=== PATIENT | female | born 1995 | race African-American/Black ===

== ENCOUNTER 2021-08-24 11:40 | Emergency (ER) | payer SELFPAY ==
[2021-08-24 15:09] LABS: CARBON DIOXIDE,CO2 23.2 mmol/L (21.0-32.0); POTASSIUM,K 3.3 mmol/L (3.5-5.1)
== END 2021-08-24 16:19 | disposition home or self-care (01) ==
LOC: MW.ED 11:40
DX: O99.891 Other specified diseases and conditions complicating pregnancy (principal); R10.9 Unspecified abdominal pain; Z3A.01 Less than 8 weeks gestation of pregnancy
CPT/HCPCS: 36415; 76801; 76801-26; 80053; 81003; 81025; 84702; 85025; 86900; 86901; 99284-25

== ENCOUNTER 2021-09-03 08:05 | Emergency (ER) | payer SELFPAY ==
[2021-09-03] MEDS ORDERED: Ondansetron 4 MG Tab.DIS PO ONE (08:30)
== END 2021-09-03 09:34 | disposition home or self-care (01) ==
LOC: MW.ED 08:05
DX: O21.0 Mild hyperemesis gravidarum (principal); Z3A.01 Less than 8 weeks gestation of pregnancy
CPT/HCPCS: 99283; A9270

== ENCOUNTER 2022-03-19 20:10 | Emergency (ER) | payer OTHER ==
[2022-03-19] MEDS ORDERED: Lidocaine 5% 700 MG Patch TRDERM ONE (21:16)
[2022-03-19] MEDS ORDERED: Ketorolac 30 MG/ML SDV IM STA (21:16)
[2022-03-19] MEDS ORDERED: Cyclobenzaprine 10 MG Tab PO ONE (21:16)
== END 2022-03-19 23:36 | disposition home or self-care (01) ==
LOC: MW.ED 20:10
DX: S39.012A Strain of muscle, fascia and tendon of lower back, initial encounter (principal)
CPT/HCPCS: 81003; 81025; 96372; 99283; A9270; J1885

== ENCOUNTER 2024-03-07 15:12 | Emergency (ER) | payer OTHER ==
[2024-03-07] MEDS: Sodium Chloride 0.9% 1,000 ML IV ONE (17:10)
[2024-03-07] MEDS: Ondansetron 4 MG/2 ML SDV IVPUSH ONE (17:11)
[2024-03-07 17:21] LABS: BILIRUBIN,URINE NEGATIVE (NEGATIVE); COLOR,URINE YELLOW; GLUCOSE,URINE NEGATIVE (NEGATIVE); KETONES,URINE >=80 mg/dL (NEGATIVE); LEUKOCYTE ESTERASE,URINE NEGATIVE (NEGATIVE); NITRITE,URINE NEGATIVE (NEGATIVE); OCCULT BLOOD,URINE NEGATIVE (NEGATIVE); PH,URINE 6.5 (5.0-8.0); PROTEIN,URINE 100 mg/dL (NEGATIVE)
[2024-03-07 17:21] LABS: BASOPHILS ABSOLUTE AUTO 0.03 K/uL (0.00-0.20); BASOPHILS PERCENT AUTO 0.3 % (0.0-1.0); EOSINOPHILS ABSOLUTE AUTO 0.01 K/uL (0.00-0.45); EOSINOPHILS PERCENT AUTO 0.1 % (0.0-6.0); HEMATOCRIT 41.1 % (37.0-47.0); IMMATURE GRAN ABSOLUTE AUTO 0.03 K/uL (0.00-0.05); IMMATURE GRAN PERCENT AUTO 0.3 % (0.0-0.4); LYMPHOCYTES ABSOLUTE AUTO 1.53 K/uL (1.00-4.80); LYMPHOCYTES PERCENT AUTO 17.2 % (24.0-44.0); MEAN CORPUSCULAR HEMOGLOBIN 28.7 pg (28.0-32.0); MEAN CORPUSCULAR HGB CONC 34.1 g/dL (32.0-36.0); MEAN CORPUSCULAR VOLUME 84.4 fL (83.0-99.0); MONOCYTES ABSOLUTE AUTO 0.39 K/uL (0.00-0.80); MONOCYTES PERCENT AUTO 4.4 % (0.0-8.0); NEUTROPHILS ABSOLUTE AUTO 6.88 K/uL (1.80-7.70); NEUTROPHILS PERCENT AUTO 77.7 % (41.0-71.0); PLATELET COUNT,PLT 234 K/uL (150-400); RED BLOOD CELL COUNT 4.87 M/uL (4.10-5.30); WHITE BLOOD CELL COUNT,WBC 8.87 K/uL (3.9-11.3)
[2024-03-07 17:38] LABS: APPEARANCE,URINE HAZY
[2024-03-07 17:39] LABS: BACTERIA,URINE 1+ (NEGATIVE); EPITHELIAL CELLS,URINE MODERATE (NONE-FEW); MUCUS,URINE MODERATE (NONE-MOD); RBC,URINE 0-1 (0-2/HPF)
[2024-03-07 18:14] LABS: A/G RATIO 0.9 (0.9-1.6); ALBUMIN 4.2 g/dL (3.4-5.0); BILIRUBIN TOTAL 0.5 mg/dL (0.2-1.0); CALCIUM 9.8 mg/dL (8.5-10.1); CARBON DIOXIDE,CO2 25.9 mmol/L (21.0-32.0); CREATININE 0.8 mg/dL (0.6-1.0); EST CRCL DRUG DOSING (CG) 99.76 mL/min; POTASSIUM,K 3.9 mmol/L (3.5-5.1)
== END 2024-03-07 18:32 | disposition home or self-care (01) ==
LOC: MW.ED 15:12
DX: O21.9 Vomiting of pregnancy, unspecified (principal); Z3A.01 Less than 8 weeks gestation of pregnancy; Z75.8 Other problems related to medical facilities and other health care; Z79.899 Other long term (current) drug therapy
CPT/HCPCS: 36415; 80053; 81001; 84702; 85025; 86900; 86901; 87428; 96361; 96374; 99284; J2405; J7030; 99283

== ENCOUNTER 2024-03-19 07:04 | Emergency (ER) | payer OTHER ==
[2024-03-19] MEDS ORDERED: Sodium Chloride 0.9% 10 ML Syringe FLUSH PRN (07:19)
[2024-03-19] MEDS: Acetaminophen 500 MG Tab PO ONE (07:20)
[2024-03-19] MEDS: Lactated Ringers 1,000 ML IV ONE (07:33)
[2024-03-19] MEDS: Ondansetron 4 MG/2 ML SDV IVPUSH ONE (07:34)
[2024-03-19] MEDS: diphenhydrAMINE 50 MG/ML SDV IVPUSH ONE (07:35)
[2024-03-19 07:42] LABS: BASOPHILS ABSOLUTE AUTO 0.02 K/uL (0.00-0.20); BASOPHILS PERCENT AUTO 0.3 % (0.0-1.0); EOSINOPHILS ABSOLUTE AUTO 0.04 K/uL (0.00-0.45); EOSINOPHILS PERCENT AUTO 0.6 % (0.0-6.0); HEMATOCRIT 37.4 % (37.0-47.0); HEMOGLOBIN 12.7 g/dL (12.0-16.0); IMMATURE GRAN ABSOLUTE AUTO 0.01 K/uL (0.00-0.05); IMMATURE GRAN PERCENT AUTO 0.2 % (0.0-0.4); LYMPHOCYTES PERCENT AUTO 25.6 % (24.0-44.0); MEAN CORPUSCULAR HEMOGLOBIN 28.4 pg (28.0-32.0); MEAN CORPUSCULAR VOLUME 83.7 fL (83.0-99.0); MEAN PLATELET VOLUME 11.3 fL (9.4-12.3); MONOCYTES ABSOLUTE AUTO 0.37 K/uL (0.00-0.80); MONOCYTES PERCENT AUTO 5.9 % (0.0-8.0); NEUTROPHILS PERCENT AUTO 67.4 % (41.0-71.0); PLATELET COUNT,PLT 210 K/uL (150-400); RED BLOOD CELL COUNT 4.47 M/uL (4.10-5.30); WHITE BLOOD CELL COUNT,WBC 6.24 K/uL (3.9-11.3)
[2024-03-19 08:13] LABS: APPEARANCE,URINE CLEAR; BILIRUBIN,URINE NEGATIVE (NEGATIVE); COLOR,URINE YELLOW; GLUCOSE,URINE NEGATIVE (NEGATIVE); KETONES,URINE NEGATIVE (NEGATIVE); LEUKOCYTE ESTERASE,URINE TRACE (NEGATIVE); NITRITE,URINE NEGATIVE (NEGATIVE); OCCULT BLOOD,URINE NEGATIVE (NEGATIVE); PROTEIN,URINE NEGATIVE (NEGATIVE); UROBILINOGEN,URINE 0.2 EU/dL (<2.0)
[2024-03-19 08:17] LABS: A/G RATIO 1.1 (0.9-1.6); ALANINE AMINOTRANSFERASE,ALT 49 IU/L (14-63); ALBUMIN 3.9 g/dL (3.4-5.0); ALKALINE PHOSPHATASE 56 U/L (46-116); ASPARTATE AMNIOTRANSFERASE,AST 14 IU/L (15-37); BILIRUBIN TOTAL 0.5 mg/dL (0.2-1.0); BLOOD UREA NITROGEN,BUN 6 mg/dL (7.0-18.0); CALCIUM 9.1 mg/dL (8.5-10.1); CARBON DIOXIDE,CO2 24.6 mmol/L (21.0-32.0); CHLORIDE,CL 102 mmol/L (98-107); CREATININE 0.9 mg/dL (0.6-1.0); GLUCOSE RANDOM 98 mg/dL (74-106); MAGNESIUM 2.1 mg/dL (1.8-2.4); PROTEIN TOTAL,TP 7.6 g/dL (6.4-8.2); SODIUM,NA 138 mmol/L (136-145)
[2024-03-19 08:18] LABS: ESTIMATED GFR 90 mL/min (>60)
[2024-03-19 08:25] LABS: C-REACTIVE PROTEIN 0.7 mg/dL (<0.3)
[2024-03-19 08:28] LABS: BACTERIA,URINE FEW (NEGATIVE); EPITHELIAL CELLS,URINE FEW (NONE-FEW); RBC,URINE 0-1 (0-2/HPF); WBC,URINE 0-2 (0-5/HPF)
== END 2024-03-19 09:41 | disposition home or self-care (01) ==
LOC: MW.ED 07:04
DX: O21.9 Vomiting of pregnancy, unspecified (principal); O99.891 Other specified diseases and conditions complicating pregnancy; R51.9 Headache, unspecified; R82.71 Bacteriuria; O23.11 Infections of bladder in pregnancy, first trimester; Z79.899 Other long term (current) drug therapy
CPT/HCPCS: 36415; 80053; 81001; 83735; 84702; 85025; 85652; 86140; 87428; 96361; 96374; 96375; 99284; A9270; J1200; J2405; J7120; 99283

== ENCOUNTER 2024-03-22 10:44 | Emergency (ER) | payer OTHER ==
[2024-03-22] MEDS: Sodium Chloride 0.9% 1,000 ML IV STA (11:07)
[2024-03-22] MEDS: Promethazine 25 MG/ML SDV IM STA (11:08)
[2024-03-22 11:11] LABS: BASOPHILS ABSOLUTE AUTO 0.02 K/uL (0.00-0.20); BASOPHILS PERCENT AUTO 0.2 % (0.0-1.0); HEMATOCRIT 39.6 % (37.0-47.0); HEMOGLOBIN 13.4 g/dL (12.0-16.0); IMMATURE GRAN ABSOLUTE AUTO 0.02 K/uL (0.00-0.05); IMMATURE GRAN PERCENT AUTO 0.2 % (0.0-0.4); LYMPHOCYTES ABSOLUTE AUTO 1.11 K/uL (1.00-4.80); LYMPHOCYTES PERCENT AUTO 12.9 % (24.0-44.0); MEAN CORPUSCULAR HEMOGLOBIN 28.3 pg (28.0-32.0); MEAN CORPUSCULAR HGB CONC 33.8 g/dL (32.0-36.0); MEAN CORPUSCULAR VOLUME 83.5 fL (83.0-99.0); MEAN PLATELET VOLUME 11.2 fL (9.4-12.3); MONOCYTES ABSOLUTE AUTO 0.33 K/uL (0.00-0.80); MONOCYTES PERCENT AUTO 3.8 % (0.0-8.0); NEUTROPHILS PERCENT AUTO 82.9 % (41.0-71.0); PLATELET COUNT,PLT 220 K/uL (150-400); RED BLOOD CELL COUNT 4.74 M/uL (4.10-5.30); WHITE BLOOD CELL COUNT,WBC 8.58 K/uL (3.9-11.3)
[2024-03-22 11:30] LABS: APPEARANCE,URINE CLEAR; GLUCOSE,URINE NEGATIVE (NEGATIVE); KETONES,URINE 15 mg/dL (NEGATIVE); LEUKOCYTE ESTERASE,URINE NEGATIVE (NEGATIVE); NITRITE,URINE POSITIVE (NEGATIVE); OCCULT BLOOD,URINE NEGATIVE (NEGATIVE); PH,URINE 6.5 (5.0-8.0); PROTEIN,URINE 100 mg/dL (NEGATIVE)
[2024-03-22 11:35] LABS: BILIRUBIN,URINE SMALL (NEGATIVE)
[2024-03-22 11:36] LABS: COLOR,URINE AMBER
[2024-03-22 11:37] LABS: BACTERIA,URINE FEW (NEGATIVE); EPITHELIAL CELLS,URINE FEW (NONE-FEW); MUCUS,URINE LIGHT (NONE-MOD); RBC,URINE 0-1 (0-2/HPF); WBC,URINE 0-5 (0-5/HPF)
[2024-03-22 11:45] LABS: A/G RATIO 0.9 (0.9-1.6); ALBUMIN 4.1 g/dL (3.4-5.0); BILIRUBIN TOTAL 0.7 mg/dL (0.2-1.0); CALCIUM 9.5 mg/dL (8.5-10.1); CARBON DIOXIDE,CO2 25.7 mmol/L (21.0-32.0); CREATININE 0.8 mg/dL (0.6-1.0); EST CRCL DRUG DOSING (CG) 99.76 mL/min; POTASSIUM,K 4.2 mmol/L (3.5-5.1); PROTEIN TOTAL,TP 8.7 g/dL (6.4-8.2)
[2024-03-22] MEDS: cefTRIAXone 1 GM in Sodium Chloride 0.9% 50 ML IV STA (12:13)
[2024-03-22] MEDS: Dextrose 5%-0.9% NaCl 1,000 ML IV STA (12:13)
== END 2024-03-22 13:25 | disposition home or self-care (01) ==
LOC: MW.ED 10:44
DX: O21.9 Vomiting of pregnancy, unspecified (principal); O23.91 Unspecified genitourinary tract infection in pregnancy, first trimester; R82.71 Bacteriuria; Z75.8 Other problems related to medical facilities and other health care; Z3A.09 9 weeks gestation of pregnancy
CPT/HCPCS: 36415; 80053; 81001; 83690; 84702; 85025; 87086; 96361; 96365; 96372; 99284; J0696; J2550; J3490; J7030; J7042

== ENCOUNTER 2024-11-03 21:55 | Inpatient (IN) | payer OTHER ==
[2024-11-03] MEDS ORDERED: Sodium Chloride 0.9% 2.5 ML Syringe FLUSH PRN (22:10)
[2024-11-03] MEDS ORDERED: Sodium Chloride 0.9% 10 ML Syringe FLUSH PRN (22:10)
[2024-11-03] MEDS ORDERED: Water For Irrigation,Sterile 1,000 ML Container IRR PRN (22:10)
[2024-11-03] MEDS ORDERED: Carboprost Tromethamine 250 MCG/1 mL Vial IM PRN (22:10)
[2024-11-03] MEDS ORDERED: Butorphanol 1 MG/ML SDV IVPUSH PRN (22:10)
[2024-11-03] MEDS: Lactated Ringers 1,000 ML IV SCH (22:42)
[2024-11-03 22:59] LABS: MEAN PLATELET VOLUME 11.5 fL (9.4-12.3); NRBC ABSOLUTE 0.00 K/uL (0.00-0.02); NRBC PERCENT 0.0 /100WBC (0.0-0.2); PLATELET COUNT,PLT 179 K/uL (150-400); RED BLOOD CELL COUNT 3.81 M/uL (4.10-5.30); WHITE BLOOD CELL COUNT,WBC 12.39 K/uL (3.9-11.3)
[2024-11-04] MEDS: Ondansetron 4 MG/2 ML SDV IVPUSH PRN (01:27)
[2024-11-04] MEDS ORDERED: Ropivacaine HCl/PF 200 ML ONE (01:40)
[2024-11-04] MEDS ORDERED: dexmedeTOMIDine HCl 200 MCG/2 ML SDV ONE (01:40)
[2024-11-04] MEDS: Ropivacaine HCl/PF 400 MG in Premix Bag 1 BAG EPIDUR SCH (01:58)
[2024-11-04] MEDS ORDERED: ePHEDrine 50 MG/ML SDV IVPUSH PRN (02:06)
[2024-11-04] MEDS ORDERED: dexmedeTOMIDine HCl 200 MCG/2 ML SDV EPIDUR SCH (02:15)
[2024-11-04] MEDS: Oxytocin/0.9 % Sodium Chloride 30 UNIT/500 ML BAG IV SCH (04:58)
[2024-11-04] MEDS ORDERED: Lanolin 100% Cream 7 GM Tube TOP PRN (05:19)
[2024-11-04 06:18] LABS: PH,UMBILICAL ARTERIAL 7.21 (7.18-7.38)
[2024-11-04 06:19] LABS: PH,UMBILICAL VENOUS 7.34 (7.25-7.45)
[2024-11-04] MEDS: Witch Hazel Medicated Pads 40/Jar TOP PRN (07:20)
[2024-11-04] MEDS: Benzocaine/Menthol 20%-0.5% Spray 78 GM Cannister TOP PRN (07:20)
== END 2024-11-05 12:10 | disposition home or self-care (01) | DRG 807 ==
LOC: MW.OBCHECK 21:55 → MW.OB 21:56 → MW.OBCHECK 22:10 → OBSVTOIN 11-04 04:57 → MW.OB 11-04 10:00
PROVIDERS: ADMIT Obstetrics & Gynecology; ATTEND Obstetrics & Gynecology
PROC: 10E0XZZ Delivery of Products of Conception, External Approach (ICD-10-PCS; principal; 2024-11-04)
PROC: 0KQM0ZZ Repair Perineum Muscle, Open Approach (ICD-10-PCS; 2024-11-04)
PROC: 4A1HXCZ Monitoring of Products of Conception, Cardiac Rate, External Approach (ICD-10-PCS; 2024-11-04)
PROC: 3E0R3BZ Introduction of Anesthetic Agent into Spinal Canal, Percutaneous Approach (ICD-10-PCS; 2024-11-04)
PROC: 00HU33Z Insertion of Infusion Device into Spinal Canal, Percutaneous Approach (ICD-10-PCS; 2024-11-04)
DX: O48.0 Post-term pregnancy (principal); Z37.0 Single live birth; Z3A.40 40 weeks gestation of pregnancy; O99.824 Streptococcus B carrier state complicating childbirth; O77.0 Labor and delivery complicated by meconium in amniotic fluid; O70.1 Second degree perineal laceration during delivery
CPT/HCPCS: 36415; 51702; 59025; 59409; 82803; 85014; 85018; 85027; 86592; 86850; 86900; 86901; 87517; A9270-GY; J0290; J0665; J2371; J2405; J2590; J2795; J7120